=== PATIENT | male | born 1995 | race Caucasian/White ===

== ENCOUNTER 2024-12-16 16:18 | Emergency (ER) | payer MEDICAID ==
[~2024-12-16] VITALS: Ht 172.7 cm; Wt 70.0 kg
[2024-12-16 16:37] VITALS: O2SAT 99
[2024-12-16 17:46] LABS: CHLORIDE 109 mEq/L (98-107); POTASSIUM 3.8 mEq/L (3.5-5.1); SODIUM 141 mEq/L (136-145)
[2024-12-16 17:47] LABS: CALCIUM 8.9 mg/dL (8.7-10.4); CARBON DIOXIDE 29 mEq/L (21-32); HEMATOCRIT. 39.6 % (42.0-52.0); HEMOGLOBIN. 13.5 g/dL (14.0-18.0); LYMPHOCYTES % 25.4 % (20.0-50.0); MEAN CORPUSCULAR HEMOGLOBIN 31.3 pg (28.0-32.0); MEAN CORPUSCULAR HGB CONC 34.2 g/dL (31.0-37.0); MEAN CORPUSCULAR VOLUME 91.6 fL (80.0-94.0); MEAN PLATELET VOLUME 8.2 fl (7.4-10.4); MONOCYTES % 10.3 % (2.0-8.0); NEUTROPHILS % 61.3 % (40.0-76.0); PLATELET 243 x1000/uL (130-400); RED BLOOD CELL COUNT 4.32 mill/uL (4.7-6.1); RED CELL DISTRIBUTION WIDTH 13.8 % (11.6-14.6); WHITE BLOOD COUNT 5.4 x1000/uL (4.5-11.0)
[2024-12-16 17:52] LABS: CREATININE 0.9 mg/dL (0.6-1.3); GLUCOSE 112 mg/dL (70-105); UREA NITROGEN BLOOD 10 mg/dL (9-23)
[2024-12-16 17:53] LABS: ETHANOL BLOOD < 10 mg/dL (<10)
[2024-12-16 17:54] LABS: ACETAMINOPHEN < 2 ug/mL (10-30); TROPONIN I HIGH SENSITIVITY < 4 ng/L (3.0-53)
[2024-12-16 18:24] LABS: CLARITY URINE CLEAR (CLEAR); COLOR URINE YELLOW (YELLOW); GLUCOSE URINE NEGATIVE (NEGATIVE); KETONES URINE NEGATIVE (NEGATIVE); LEUKOCYTE ESTERASE URINE NEGATIVE (NEGATIVE); NITRITE URINE NEGATIVE (NEGATIVE); OCCULT BLOOD URINE NEGATIVE (NEGATIVE); PROTEIN URINE NEGATIVE (NEGATIVE); UROBILINOGEN URINE 0.2 E.U./dL (0.2-1.0)
[2024-12-16 19:12] LABS: *AMPHETAMINES SCREEN URINE NEGATIVE (NEGATIVE); *BARBITURATES SCREEN URINE NEGATIVE (NEGATIVE); *BENZODIAZEPINES SCREEN URINE NEGATIVE (NEGATIVE); *COCAINE SCREEN URINE NEGATIVE (NEGATIVE); METHADONE URINE SCREEN NEGATIVE (NEGATIVE)
[2024-12-16 19:13] LABS: CANNABINOID URINE SCREEN PRESUMPTIVE POSITIVE (NEGATIVE); ECSTASY MDMA SCREEN URINE NEGATIVE (NEGATIVE); OPIATES URINE SCREEN NEGATIVE (NEGATIVE); PHENCYCLIDINE URINE SCREEN NEGATIVE (NEGATIVE)
[2024-12-16 20:32] LABS: TROPONIN I HIGH SENSITIVITY < 4 ng/L (3.0-53)
[2024-12-17 08:42] VITALS: BP 118/68; PULSE 72; RESP 16; TEMP 36.9; O2SAT 100
== END 2024-12-17 08:45 | disposition home or self-care (01) ==
LOC: ER 16:18
DX: F32.A Depression, unspecified (principal); Z79.899 Other long term (current) drug therapy
CPT/HCPCS: 36415; 80048; 80305; 80307; 80320; 80329; 81003; 84484; 85025; 99285; G0480